=== PATIENT | male | born 1975 | race Two or more races ===

== ENCOUNTER 2021-06-07 05:10 | Inpatient (IN) | payer MEDICAID, OTHER ==
[~2021-06-07] VITALS: Ht 172.7 cm; Wt 82.0 kg
[2021-06-07] MEDS ORDERED: MAGNESIUM SULFATE 1 GM, THIAMINE 100 MG, FOLIC ACID 1 MG, MVI ADULT 10 ML in SODIUM CHL... IV ONE (05:30)
[2021-06-07] MEDS ORDERED: SODIUM CHLORIDE FLUSH 10ML SYR IVF ONE (05:30)
[2021-06-07] MEDS ORDERED: DIAZEPAM 5 MG/ML, 2ML ONE ×3 (05:32→07:18)
[2021-06-07] MEDS: DIAZEPAM 5 MG/ML, 2ML IVPush PRN ×3 (05:37→07:20)
--- NOTE | 2021-06-07 05:44 | NUR ---
BIB EMS FROM [facility]. PT IS WELL KNOWN TO THIS ER. PT HEAVY ETOH DRINKER. HAD SEIZURE WITNESSED BY CAMERA IN [facility]. PT RECIEVED 15 MG DIAZEPAM AT 2300 AND 0.5 MG VERSED ENROUTE. PT A/O X 4, HAS VISIBLE TREMORS, VERY DIAPHORETIC, PLACED ON ALL MONITORS, MEDICATED PE EMAR, SEIZURE PRECATIONS IN PLACE. PT TO CT AT THIS TIME WELL.
[2021-06-07 05:46] LABS: MEAN CORPUSCULAR HEMOGLOBIN 31.3 pg (27.5-34.5); MEAN CORPUSCULAR HGB CONC 34.9 g/dL (33.2-36.2); MEAN PLATELET VOLUME 8.6 fL (7.4-10.4); RED BLOOD COUNT 3.94 x10^6/uL (4.38-5.82); RED CELL DISTRIBUTION WIDTH 24.5 % (9.4-14.8)
[2021-06-07 05:57] LABS: ALANINE AMINOTRANSFERASE 56 U/L (12-78); ALBUMIN 2.6 g/dL (3.4-5.0); ANION GAP 14 mmol/L (5-15); CALCIUM 6.8 mg/dL (8.5-10.1); CHLORIDE 88 mmol/L (98-107); CREATININE 0.63 mg/dL (0.7-1.3)
[2021-06-07 05:59] LABS: ALKALINE PHOSPHATASE 105 U/L (45-117); BILIRUBIN,TOTAL 1.4 mg/dL (0.2-1.0); TOTAL PROTEIN 6.7 g/dL (6.4-8.2)
[2021-06-07] MEDS ORDERED: ONDANSETRON 2MG/ML, 2ML ONE (06:09)
[2021-06-07 06:14] LABS: BANDS%(MANUAL) 4 % (0-7); BASOS% (MANUAL) 1 % (0-1); LYMPHS% (MANUAL) 2 % (22-44); MONOS% (MANUAL) 3 % (2-9); OVALOCYTES 1+; SEG#(MANUAL) 9.09 x10^3/uL (1.8-6.8); SEGS% (MANUAL) 90 % (42-75); TEAR DROPS 1+
[2021-06-07 06:15] LABS: <PLATELET ESTIMATE> DECREASED; <PLT MORPHOLOGY> NORMAL PLT MORPH
[2021-06-07 06:16] LABS: PLATELET COUNT 44 x10^3/uL (130-400)
[2021-06-07] MEDS ORDERED: ONDANSETRON 2MG/ML, 2ML IVPush ONE (06:30)
--- NOTE | 2021-06-07 06:50 | NUR ---
report from zhanna
[2021-06-07] MEDS ORDERED: POTASSIUM CHLORIDE 40 MEQ in SODIUM CHLORIDE 0.9% 500 ML IV ONE (07:00)
--- NOTE | 2021-06-07 07:27 | NUR ---
MEDICATED FOR WITHDRAWEL SYMPTOMS. PIV PLACED. , VSS
[2021-06-07] MEDS ORDERED: SODIUM CHLORIDE FLUSH 10ML SYR IVF PRN (07:30)
[2021-06-07] MEDS ORDERED: LORazepam 2 MG/ML, 1ML IV PRN ×2 (08:00)
--- NOTE | 2021-06-07 08:00 | NUR ---
report to rogelio
[2021-06-07] MEDS ORDERED: NS + 40MEQ KCL 1,000 ML IV ONE (09:00)
[2021-06-07] MEDS: MULTIVITAMINS/MINERALS TABLET PO SCH (09:34)
[2021-06-07] MEDS: GABAPENTIN 300 MG CAPSULE PO SCH ×3 (09:34→20:36)
[2021-06-07] MEDS: DIVALPROEX 125 MG CAP.SPRINK PO SCH ×2 (09:35→17:09)
[2021-06-07 12:00] VITALS: BP 128/84
[2021-06-07] MEDS: MAGNESIUM SULFATE PMX 4GM/100M 100 ML IVPB SCH ×2 (13:39→19:00)
[2021-06-07 14:49] VITALS: BP 131/88
[2021-06-07] MEDS: NS + 40MEQ KCL 1,000 ML IV SCH (15:15)
[2021-06-07] MEDS: LORazepam 2 MG/ML, 1ML IV PRN (17:10)
[2021-06-07 19:22] VITALS: BP 130/80
[2021-06-08] MEDS: MAGNESIUM SULFATE PMX 4GM/100M 100 ML IVPB SCH (00:53)
[2021-06-08] MEDS: DIVALPROEX 125 MG CAP.SPRINK PO SCH ×3 (00:53→16:27)
[2021-06-08 01:41] VITALS: BP 132/85
[2021-06-08] MEDS: LORazepam 2 MG/ML, 1ML IV PRN ×4 (01:42→20:08)
[2021-06-08] MEDS: NS + 40MEQ KCL 1,000 ML IV SCH (01:42)
[2021-06-08 02:44] LABS: MICROSCOPIC NOT IND
[2021-06-08 04:56] LABS: BASOPHILS % (AUTO) 1 % (0-1); EOSINOPHILS % (AUTO) 1 % (1-7); LYMPHOCYTES % (AUTO) 10 % (22-44); MEAN CORPUSCULAR HEMOGLOBIN 31.5 pg (27.5-34.5); MEAN CORPUSCULAR HGB CONC 34.2 g/dL (33.2-36.2); MEAN PLATELET VOLUME 8.7 fL (7.4-10.4); MONOCYTES % (AUTO) 5 % (2-9); NEUTROPHILS % (AUTO) 84 % (42-75); RED BLOOD COUNT 3.76 x10^6/uL (4.38-5.82); RED CELL DISTRIBUTION WIDTH 23.2 % (9.4-14.8)
[2021-06-08 05:08] LABS: ALANINE AMINOTRANSFERASE 43 U/L (12-78); ALBUMIN 2.1 g/dL (3.4-5.0); ANION GAP 6 mmol/L (5-15); CALCIUM 6.5 mg/dL (8.5-10.1); CHLORIDE 100 mmol/L (98-107); CREATININE 0.32 mg/dL (0.7-1.3)
[2021-06-08 05:10] LABS: ALKALINE PHOSPHATASE 91 U/L (45-117); BILIRUBIN,TOTAL 1.2 mg/dL (0.2-1.0); TOTAL PROTEIN 5.8 g/dL (6.4-8.2)
[2021-06-08 05:51] LABS: PLATELET COUNT 24 x10^3/uL (130-400)
[2021-06-08 08:14] VITALS: BP 117/71
[2021-06-08] MEDS: MULTIVITAMINS/MINERALS TABLET PO SCH (09:09)
[2021-06-08] MEDS: THIAMINE 100 MG in DEXTROSE 5% 50 ML IVPB SCH (09:09)
[2021-06-08] MEDS: GABAPENTIN 300 MG CAPSULE PO SCH ×3 (09:09→20:08)
[2021-06-08] MEDS: METOCLOPRAMIDE 5 MG/ML, 2ML IVPush PRN (10:56)
[2021-06-08 14:22] VITALS: BP 138/88
[2021-06-08] MEDS ORDERED: MUPIROCIN OINT 2%, 1 GM APPL. TP SCH (18:00)
[2021-06-08] MEDS: MUPIROCIN OINT 2%, 15GM TP SCH (18:00)
[2021-06-08 19:10] VITALS: BP 128/75
[2021-06-09] MEDS: DIVALPROEX 125 MG CAP.SPRINK PO SCH ×3 (00:07→15:25)
[2021-06-09 01:03] VITALS: BP 120/75
[2021-06-09 05:04] LABS: BASOPHILS % (AUTO) 1 % (0-1); EOSINOPHILS % (AUTO) 1 % (1-7); LYMPHOCYTES % (AUTO) 17 % (22-44); MEAN CORPUSCULAR HEMOGLOBIN 30.9 pg (27.5-34.5); MEAN CORPUSCULAR HGB CONC 33.6 g/dL (33.2-36.2); MEAN PLATELET VOLUME 8.8 fL (7.4-10.4); MONOCYTES % (AUTO) 8 % (2-9); NEUTROPHILS % (AUTO) 73 % (42-75); RED BLOOD COUNT 4.02 x10^6/uL (4.38-5.82); RED CELL DISTRIBUTION WIDTH 22.3 % (9.4-14.8)
[2021-06-09 05:07] LABS: PLATELET COUNT 32 x10^3/uL (130-400)
[2021-06-09] MEDS: MUPIROCIN OINT 2%, 15GM TP SCH ×2 (05:10→17:00)
[2021-06-09 05:16] LABS: ANION GAP 7 mmol/L (5-15); CALCIUM 7.2 mg/dL (8.5-10.1); CHLORIDE 96 mmol/L (98-107); CREATININE 0.36 mg/dL (0.7-1.3)
[2021-06-09] MEDS: LORazepam 2 MG/ML, 1ML IV PRN ×4 (05:16→20:15)
[2021-06-09 07:02] VITALS: BP 113/72
[2021-06-09] MEDS: GABAPENTIN 300 MG CAPSULE PO SCH ×3 (08:15→20:15)
[2021-06-09] MEDS: MULTIVITAMINS/MINERALS TABLET PO SCH (08:16)
[2021-06-09] MEDS: THIAMINE 100 MG in DEXTROSE 5% 50 ML IVPB SCH (10:16)
[2021-06-09] MEDS ORDERED: MAGNESIUM SULFATE PMX 2GM/50ML 50 ML IV ONE (11:30)
[2021-06-09] MEDS: NS + 40MEQ KCL 1,000 ML IV SCH (12:02)
[2021-06-09 13:53] VITALS: BP 123/82
[2021-06-09] MEDS ORDERED: POTASSIUM CHLORIDE 10 MEQ in LACTATED RINGERS 1,000 ML IV SCH (14:30)
[2021-06-09] MEDS: POTASSIUM CHLORIDE 20 MEQ TAB.ER.PRT PO SCH (16:02)
[2021-06-09] MEDS: ACETAMINOPHEN 325 MG TABLET PO PRN (16:03)
[2021-06-09] MEDS ORDERED: QUETIAPINE 100MG TABLET PO SCH (17:00)
[2021-06-09 20:05] VITALS: BP 106/67
[2021-06-10] MEDS: DIVALPROEX 125 MG CAP.SPRINK PO SCH ×4 (00:02→23:33)
[2021-06-10] MEDS: LORazepam 2 MG/ML, 1ML IV PRN ×2 (00:02→16:10)
[2021-06-10] MEDS: METOCLOPRAMIDE 5 MG/ML, 2ML IVPush PRN (00:14)
[2021-06-10 00:30] VITALS: BP 124/85
[2021-06-10] MEDS: MUPIROCIN OINT 2%, 15GM TP SCH ×2 (05:57→17:06)
[2021-06-10 06:45] VITALS: BP 126/85
[2021-06-10 07:15] LABS: ALBUMIN 2.3 g/dL (3.4-5.0); ANION GAP 6 mmol/L (5-15); CALCIUM 8.4 mg/dL (8.5-10.1); CHLORIDE 102 mmol/L (98-107)
[2021-06-10 07:18] LABS: ALANINE AMINOTRANSFERASE 47 U/L (12-78); ALKALINE PHOSPHATASE 91 U/L (45-117); BILIRUBIN,TOTAL 0.7 mg/dL (0.2-1.0); CREATININE 0.36 mg/dL (0.7-1.3); TOTAL PROTEIN 6.9 g/dL (6.4-8.2)
[2021-06-10] MEDS ORDERED: MAGNESIUM SULFATE PMX 2GM/50ML 50 ML IV ONE ×2 (08:00→18:00)
[2021-06-10] MEDS: THIAMINE 100 MG in DEXTROSE 5% 50 ML IVPB SCH (08:59)
[2021-06-10] MEDS: GABAPENTIN 300 MG CAPSULE PO SCH ×3 (08:59→20:15)
[2021-06-10] MEDS: MULTIVITAMINS/MINERALS TABLET PO SCH (08:59)
[2021-06-10] MEDS: POTASSIUM CHLORIDE 20 MEQ TAB.ER.PRT PO SCH ×2 (08:59→16:04)
[2021-06-10] MEDS: NS + 40MEQ KCL 1,000 ML IV SCH (11:35)
[2021-06-10 13:35] VITALS: BP 107/73
[2021-06-10 19:44] VITALS: BP 116/78
[2021-06-10] MEDS ORDERED: CALCIUM CARBONATE 500 MG TAB.CHEW ONE (20:01)
[2021-06-10] MEDS: CALCIUM CARBONATE 500 MG TAB.CHEW PO PRN ×2 (20:15→22:05)
[2021-06-11 00:48] VITALS: BP 120/81
[2021-06-11] MEDS: CALCIUM CARBONATE 500 MG TAB.CHEW PO PRN ×2 (01:34→10:45)
[2021-06-11] MEDS: METOCLOPRAMIDE 5 MG/ML, 2ML IVPush PRN (01:34)
[2021-06-11] MEDS: LORazepam 2 MG/ML, 1ML IV PRN (03:24)
[2021-06-11] MEDS: ACETAMINOPHEN 325 MG TABLET PO PRN (03:24)
[2021-06-11] MEDS: MUPIROCIN OINT 2%, 15GM TP SCH ×2 (05:23→17:13)
[2021-06-11 05:54] LABS: MEAN CORPUSCULAR HEMOGLOBIN 31.5 pg (27.5-34.5); MEAN CORPUSCULAR HGB CONC 33.4 g/dL (33.2-36.2); MEAN PLATELET VOLUME 8.4 fL (7.4-10.4); PLATELET COUNT 74 x10^3/uL (130-400); RED BLOOD COUNT 4.09 x10^6/uL (4.38-5.82)
[2021-06-11 06:02] LABS: CHLORIDE 103 mmol/L (98-107)
[2021-06-11 06:09] LABS: ALANINE AMINOTRANSFERASE 37 U/L (12-78); ALBUMIN 2.2 g/dL (3.4-5.0); ALKALINE PHOSPHATASE 83 U/L (45-117); ANION GAP 6 mmol/L (5-15); BILIRUBIN,TOTAL 0.6 mg/dL (0.2-1.0); CALCIUM 8.7 mg/dL (8.5-10.1); CREATININE 0.39 mg/dL (0.7-1.3); TOTAL PROTEIN 6.7 g/dL (6.4-8.2)
[2021-06-11 06:38] VITALS: BP 113/75
[2021-06-11 06:41] LABS: BANDS%(MANUAL) 2 % (0-7); EOS#(MANUAL) 0.29 x10^3/uL (0.0-0.4); EOS% (MANUAL) 6 % (1-7); SEGS% (MANUAL) 51 % (42-75)
[2021-06-11 06:42] LABS: LYMPH#(MANUAL) 1.08 x10^3/uL (1-3.4); LYMPHS% (MANUAL) 22 % (22-44)
[2021-06-11 06:44] LABS: MONOS#(MANUAL) 0.78 x10^3/uL (0.3-2.7); MONOS% (MANUAL) 16 % (2-9); REACTIVE LYMPHS # (MANUAL) 0.15 x10^3/uL (0-0); REACTIVE LYMPHS % (MANUAL) 3 % (0-0)
[2021-06-11 06:46] LABS: <PLATELET ESTIMATE> DECREASED; <PLT MORPHOLOGY> NORMAL PLT MORPH; ANISOCYTOSIS 1+
[2021-06-11] MEDS: GABAPENTIN 300 MG CAPSULE PO SCH (08:03)
[2021-06-11] MEDS: POTASSIUM CHLORIDE 20 MEQ TAB.ER.PRT PO SCH ×2 (08:03→17:12)
[2021-06-11] MEDS: DIVALPROEX 125 MG CAP.SPRINK PO SCH ×3 (08:04→20:32)
[2021-06-11] MEDS: THIAMINE 100 MG in DEXTROSE 5% 50 ML IVPB SCH (08:04)
[2021-06-11] MEDS: MULTIVITAMINS/MINERALS TABLET PO SCH (08:04)
[2021-06-11] MEDS: NS + 40MEQ KCL 1,000 ML IV SCH (10:03)
[2021-06-11] MEDS: SUCRALFATE 1 GM/10 ML UDC PO SCH ×3 (11:20→20:31)
[2021-06-11] MEDS: PANTOPRAZOLE 40MG TABLET PO SCH (11:20)
[2021-06-11 13:49] VITALS: BP 114/79
[2021-06-11] MEDS: GABAPENTIN 100 MG CAPSULE PO SCH ×2 (15:36→20:32)
[2021-06-11] MEDS ORDERED: GABAPENTIN 100 MG CAPSULE PO SCH (16:00)
[2021-06-11 18:23] VITALS: BP 123/85
[2021-06-12 00:34] VITALS: BP 109/75
[2021-06-12] MEDS: PANTOPRAZOLE 40MG TABLET PO SCH (04:16)
[2021-06-12] MEDS: CALCIUM CARBONATE 500 MG TAB.CHEW PO PRN (04:16)
[2021-06-12] MEDS: MUPIROCIN OINT 2%, 15GM TP SCH ×2 (04:16→17:48)
[2021-06-12] MEDS: ACETAMINOPHEN 325 MG TABLET PO PRN (04:16)
[2021-06-12] MEDS: NS + 40MEQ KCL 1,000 ML IV SCH (04:35)
[2021-06-12 07:18] VITALS: BP 117/75
[2021-06-12] MEDS: GABAPENTIN 100 MG CAPSULE PO SCH ×3 (07:26→20:07)
[2021-06-12] MEDS: POTASSIUM CHLORIDE 20 MEQ TAB.ER.PRT PO SCH (07:26)
[2021-06-12] MEDS: MULTIVITAMINS/MINERALS TABLET PO SCH (07:26)
[2021-06-12] MEDS: DIVALPROEX 125 MG CAP.SPRINK PO SCH ×3 (07:26→20:07)
[2021-06-12] MEDS: SUCRALFATE 1 GM/10 ML UDC PO SCH ×4 (07:26→20:07)
[2021-06-12 12:12] VITALS: BP 101/67
[2021-06-12 19:33] VITALS: BP 110/72
[2021-06-13 00:50] VITALS: BP 111/66
[2021-06-13] MEDS: MUPIROCIN OINT 2%, 15GM TP SCH (05:29)
[2021-06-13] MEDS: PANTOPRAZOLE 40MG TABLET PO SCH (05:29)
[2021-06-13 05:48] LABS: MEAN CORPUSCULAR HEMOGLOBIN 31.6 pg (27.5-34.5); MEAN CORPUSCULAR HGB CONC 33.4 g/dL (33.2-36.2); MEAN PLATELET VOLUME 7.6 fL (7.4-10.4); PLATELET COUNT 146 x10^3/uL (130-400); RED BLOOD COUNT 4.18 x10^6/uL (4.38-5.82)
[2021-06-13 06:04] LABS: CHLORIDE 104 mmol/L (98-107)
[2021-06-13 06:10] LABS: ALANINE AMINOTRANSFERASE 51 U/L (12-78); ALBUMIN 2.4 g/dL (3.4-5.0); ALKALINE PHOSPHATASE 80 U/L (45-117); ANION GAP 4 mmol/L (5-15); BILIRUBIN,TOTAL 0.4 mg/dL (0.2-1.0); CALCIUM 8.9 mg/dL (8.5-10.1); CREATININE 0.37 mg/dL (0.7-1.3); TOTAL PROTEIN 7.1 g/dL (6.4-8.2)
[2021-06-13 06:16] LABS: BAND#(MANUAL) 0.14 x10^3/uL; BANDS%(MANUAL) 3 % (0-7); EOS#(MANUAL) 0.09 x10^3/uL (0.0-0.4); EOS% (MANUAL) 2 % (1-7); LYMPHS% (MANUAL) 37 % (22-44); METAMYELOCYTES# (MANUAL) 0.05 x10^3/uL (0-0); METAMYELOCYTES% (MANUAL) 1 % (0-1); MONOS#(MANUAL) 0.83 x10^3/uL (0.3-2.7); MONOS% (MANUAL) 18 % (2-9); SEG#(MANUAL) 1.79 x10^3/uL (1.8-6.8); SEGS% (MANUAL) 39 % (42-75)
[2021-06-13 06:17] VITALS: BP 107/73
[2021-06-13 06:17] LABS: <PLATELET ESTIMATE> ADEQUATE; <PLT MORPHOLOGY> NORMAL PLT MORPH; ANISOCYTOSIS 1+; POLYCHROMASIA 1+
[2021-06-13 08:04] VITALS: BP 115/78
[2021-06-13] MEDS ORDERED: PANT40TA6 PO (08:28)
[2021-06-13] MEDS ORDERED: MUPI22OI2 TP (08:28)
[2021-06-13] MEDS ORDERED: SUCR1ORA5 PO (08:28)
[2021-06-13] MEDS ORDERED: MULT-449 PO (08:28)
[2021-06-13] MEDS: DIVALPROEX 125 MG CAP.SPRINK PO SCH (08:34)
[2021-06-13] MEDS: SUCRALFATE 1 GM/10 ML UDC PO SCH ×2 (08:34→11:03)
[2021-06-13] MEDS: MULTIVITAMINS/MINERALS TABLET PO SCH (08:34)
[2021-06-13] MEDS: GABAPENTIN 100 MG CAPSULE PO SCH (08:34)
== END 2021-06-13 12:05 | disposition home or self-care (01) | DRG 101 ==
LOC: ED 07:42 → 4WST 08:37 → 4EST 10:33
PROVIDERS: ADMIT Internal Medicine; ATTEND Internal Medicine
DX: G40.409 Other generalized epilepsy and epileptic syndromes, not intractable, without status epilepticus (principal); E87.1 Hypo-osmolality and hyponatremia; F10.24 Alcohol dependence with alcohol-induced mood disorder; R45.851 Suicidal ideations; F10.239 Alcohol dependence with withdrawal, unspecified; D69.59 Other secondary thrombocytopenia; E66.9 Obesity, unspecified; E83.42 Hypomagnesemia; E87.6 Hypokalemia; F32.9 Major depressive disorder, single episode, unspecified; J32.9 Chronic sinusitis, unspecified; K20.90 Esophagitis, unspecified without bleeding; S00.93XA Contusion of unspecified part of head, initial encounter; X58.XXXA Exposure to other specified factors, initial encounter; Y93.89 Activity, other specified; Y92.89 Other specified places as the place of occurrence of the external cause; Y99.8 Other external cause status; Z68.27 Body mass index [BMI] 27.0-27.9, adult
CPT/HCPCS: 36415; 70450; 70486; 71045; 80048; 80053; 80320; 81003; 83735; 84100; 84132; 85025; 87070; 87147; 87205; 93005; 96365; 96366; 96375; G0378; J2405; J3360; J3411; J3475; J3480; G0480; J2060; J2765; J7030; J7040